=== PATIENT | female | born 1950 ===

== ENCOUNTER → 2016-10-06 | Outpatient (CLI) | payer MEDICARE, OTHER ==
--- NOTE | 2016-10-07 11:14 | RADIOLOGY REPORT (SQ) ---
EXAM DESCRIPTION: MRI HEAD COMBO COMPLETED DATE/TIME: 10/06/2016 5:16 pm REASON FOR STUDY: DIPLOPIA H53.2 DIPLOPIA COMPARISON: None. TECHNIQUE: Multiplanar imaging includes non-contrasted T1, T2, FLAIR, diffusion with ADC map and pos t gadolinium contrast sequences. Additional thin slice images with and without gadolinium contrast, additional facet T2 coronal and axial images acquired of the orbits. Images stored on PACS. CONTRAST TYPE AND DOSE: 10 mL Multihance. RENAL FUNCTION: GFR > 60. LIMITATIONS: None. FINDINGS: ANATOMY: No developmental anomalies. Normal vascular flow voids. Pituitary fossa normal. CSF SPACES: Normal in size and contour. CEREBRUM: Sulci and gyri normal in size and contour. Moderate spotty bifrontal and biparietal increa sed white matter signal on FLAIR imaging, likely chronic small vessel ischemic change. No hemorrhag e. No edema, masses or mass effect. No enhancing lesions. POSTERIOR FOSSA: Moderate increased white matter signal on FLAIR imaging in the mid dian from chronic small vessel ischemic change. . No hemorrhage. No edema, masses or mass effect. Internal auditory canals, cerebello-pontine angles, mastoids normal. No enhancing lesions. DIFFUSION IMAGING: Negative for acute or sub-acute infarction. ORBITS: No masses. Globes normal. Extraocular muscles and optic nerves normal. Orbital fat clear. No inflammatory changes or enhancement. PARANASAL SINUSES: No fluid levels. Mucosa normal. 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 This cause s [id number] central canal stenosis and mild flattening of the ventral medulla best shown on sa gittal T1 image 13 and axial T2 image 1. No abnormal medulla increased signal worrisome for edema or myelomalacia IMPRESSION: Spotty chronic white matter disease in the bifrontal and biparietal regions and mid dian , likely related to microvascular ischemic changes. Demyelinating disease is considered less likely. 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 There is central stenosis and mild flattening of the ventral medulla. F lexion and extension C-spine images are recommended to determine if there is instability at the C1-2 level. TECHNICAL DOCUMENTATION: JOB ID: [id number] [employer]- All Rights Reserved
== END ==
LOC: RAD 15:31
PROVIDERS: ATTEND Internal Medicine
DX: H53.2 Diplopia (principal)
CPT/HCPCS: 82565; 70553; A9577